=== PATIENT | male | born 1980 | race Two or more races ===

== ENCOUNTER 2019-02-27 17:47 | Emergency (ER) | payer MEDICAID ==
[~2019-02-27] VITALS: Ht 175.3 cm; Wt 90.7 kg
[2019-02-27 17:55] VITALS: BP 156/80
== END 2019-02-27 21:02 | disposition home or self-care (01) ==
LOC: ER 17:47
DX: S62.314A Displaced fracture of base of fourth metacarpal bone, right hand, initial encounter for closed fracture (principal); W22.09XA Striking against other stationary object, initial encounter; Y93.89 Activity, other specified; Y99.8 Other external cause status; Y92.89 Other specified places as the place of occurrence of the external cause
CPT/HCPCS: 29125; 73130